=== PATIENT | female | born 1970 | race African-American/Black ===

== ENCOUNTER 2020-09-05 17:46 | Emergency (ER) | payer OTHER ==
[~2020-09-05] VITALS: Ht 162.6 cm; Wt 145.1 kg
[~2020-09-05 17:46] MED LIST: AMLODIPINE BESY10 MG ORAL; CARVEDILOL25 MG ORAL; FUROSEMIDE20 M1 ORAL; HYDROCHLOROTHIA25 MG ORAL; LIPITOR10 MG ORAL; LOSARTAN POTASS50 MG ORAL; MILK THISTLE140 M1 PO; MULTI-VITAMIN1 EAC2 PO; SPIRONOLACTONE25 MG ORAL; SPIRONOLACTONE50 MG ORAL; [UNRECOGNIZED DRUG - OTHER]; [UNRECOGNIZED DRUG - OTHER] PO; [UNRECOGNIZED DRUG - OTHER] PO
--- NOTE | 2020-09-05 18:21 | Emergency Room Report ---
History of Present Illness General Chief Complaint: Abdominal Pain Source: Patient Present Illness HPI Disclaimer: Please note that this report is being documented using DGSE technology. This can lead to erroneous entry secondary to incorrect interpretation by the dictating instrument. HPI: Is a 50-year-old female presenting for evaluation abdominal pain. History of uterine fibroids status post embolization and myomectomy. She states an ultrasound this summer showed a large fibroid tumor and is scheduled for MRI soon to determine further treatment. She states worsening pain caused her to vomit over the past few days. Unable to hold down her medications. Also felt a sharp midsternal chest pain does not radiate with a sort of mild shortness of breath. This is now resolved. States she feels persistently nauseated. No exacerbating or relieving symptoms. PMH: Uterine fibroids, CAD PSH: Myomectomy, uterine embolization. Allergies: [] Social Hx: [] Allergies: Coded Allergies: No Known Allergies (Unverified , 07/21/13) COVID-19 Screening Contact w/high risk pt: No Experienced COVID-19 symptoms?: Yes COVID-19 Testing performed PROVIDER ENROLLMENT SPECIALIST: No Nursing Documentation-PMH Hx Cardiac Problems: No Hx Hypertension: Yes Hx COPD: Yes Hx Cancer: No Hx Gastrointestinal Problems: No - fibroid tumors Hx Dialysis: No Hx Neurological Problems: No Physical Exam Vital Signs Date Time Temp Pulse Resp B/P (MAP) Pulse Ox O2 Delivery O2 Flow Rate FiO2 09/05/20 18:02 99.1 102 18 161/96 (117) 94 Room Air General: Awake and alert, no acute distress HEENT: NC/AT. EOMI. Cardiovascular: RRR. S1 and S2 normal. No murmur appreciated Resp: Normal work of breathing. No cough, wheezing or crackles appreciated Abdomen: Morbidly obese abdomen. Abdomen is soft, nondistended. Suprapubic tenderness without guarding. Negative rebound. Some tenderness in the epigastrium. Unable to assess for Null secondary to body habitus. Skin: Intact. No abrasions, laceration or rash over the exposed skin MSK: Normal tone and bulk. Moving all extremities. No obvious deformity. Neuro: Awake and alert. Mentating appropriately. Medical Decision Making Diagnostic Impression: Primary Impression: Abdominal pain Additional Impressions: Diverticulosis Fibroid, uterine Hiatal hernia ER Course 50-year-old female presenting for evaluation of abdominal pain and vomiting. Differential includes is not limited to gastritis, gastroenteritis, mesenteric ischemia, pancreatitis, cholecystitis, nephrolithiasis, pancreatitis, bowel obstruction, diverticulitis, fibroid uterus, UTI, pyelonephritis, intra- abdominal mass among others. Labs have returned within normal limits. Patient noted improvement in nausea after receiving Zofran however complained of persistent low abdominal tenderness. CT was obtained to evaluate for appendicitis or other significant pathology but returned largely within normal limits. There were findings of fibroid uterus consistent with patient's history as well as diverticulosis without diverticulitis, hiatal hernia and small gallstones but no evidence of impaction or obstruction. She is feeling well on reevaluation stable for outpatient follow-up. Scheduled to follow-up with [employer] TECHNICIAN for MRI of the uterus and further treatment of fibroids. Will discharge with Pepcid and Zofran. Copies of labs and CT including discharge paperwork. Instructed to return with new or worsening symptoms. She understands and agrees with this treatment plan. Laboratory Tests Test 09/05/20 18:25 White Blood Count 7.5 K/UL (4.8-10.8) Red Blood Count 4.85 M/UL (4.20-5.40) Hemoglobin 14.0 G/DL (12.0-16.0) Hematocrit 41.6 % (37.0-47.0) Mean Corpuscular Volume 86 FL (80-99) Mean Corpuscular Hemoglobin 28.9 PG (27.0-31.0) Mean Corpuscular Hemoglobin Concent 33.7 G/DL (32.0-36.0) Red Cell Distribution Width 15.5 % (11.6-14.8) H Platelet Count 237 K/UL (150-450) Mean Platelet Volume 7.5 FL (6.5-10.1) Neutrophils (%) (Auto) 79.4 % (45.0-75.0) H Lymphocytes (%) (Auto) 15.3 % (20.0-45.0) L Monocytes (%) (Auto) 4.8 % (1.0-10.0) Eosinophils (%) (Auto) 0.3 % (0.0-3.0) Basophils (%) (Auto) 0.2 % (0.0-2.0) Urine Color Pale yellow Urine Appearance Clear Urine pH 8 (4.5-8.0) Urine Specific [place] 1.005 (1.005-1.035) Urine Protein Negative (NEGATIVE) Urine Glucose (UA) Negative (NEGATIVE) Urine Ketones Negative (NEGATIVE) Urine Blood 2+ (NEGATIVE) H Urine Nitrite Negative (NEGATIVE) Urine Bilirubin Negative (NEGATIVE) Urine Urobilinogen Normal MG/DL (0.0-1.0) Urine Leukocyte Esterase Negative (NEGATIVE) Urine RBC 15-20 /HPF (0 - 2) H Urine WBC 0-2 /HPF (0 - 2) Urine Squamous Epithelial Cells Few /LPF (NONE/OCC) Urine Bacteria Few /HPF (NONE) Sodium Level 139 MMOL/L (136-145) Potassium Level 3.9 MMOL/L (3.5-5.1) Chloride Level 103 MMOL/L (98-107) Carbon Dioxide Level 29 MMOL/L (21-32) Anion Gap 7 mmol/L (5-15) Blood Urea Nitrogen 8 mg/dL (7-18) Creatinine 0.9 MG/DL (0.55-1.30) Estimated Glomerular Filtration Rate > 60 mL/min (>60) Glucose Level 103 MG/DL (74-106) Calcium Level 8.9 MG/DL (8.5-10.1) Total Bilirubin 0.6 MG/DL (0.2-1.0) Aspartate Amino Transferase (AST) 22 U/L (15-37) Alanine Aminotransferase (ALT) 30 U/L (12-78) Alkaline Phosphatase 78 U/L (46-116) Troponin I 0.000 ng/mL (0.000-0.056) Total Protein 7.9 G/DL (6.4-8.2) Albumin 3.3 G/DL (3.4-5.0) L Globulin 4.6 g/dL Albumin/Globulin Ratio 0.7 (1.0-2.7) L Lipase 105 U/L (73-393) CT/MRI/US Diagnostic Results CT/MRI/US Diagnostic Results : Impression IMPRESSION: 1. Cardiomegaly. 2. Hiatal hernia. 3. Minimal cholelithiasis. 4. No hydronephrosis. 5. Appendix is unremarkable. 6. No bowel obstruction. 7. Diverticulosiswithout diverticulitis. 8. Fibroid uterus. Radiologist: Maximino Sosa MD Electronically Signed: 09/05/20 20:59 Study ready at 20:53 and initial results transmitted at 2 Last Vital Signs Date Time Temp Pulse Resp B/P (MAP) Pulse Ox O2 Delivery O2 Flow Rate FiO2 09/05/20 18:02 99.1 102 18 161/96 (117) 94 Room Air Disposition: HOME, SELF-CARE Condition: Stable Scripts Ondansetron Odt* (ZOFRAN ODT*) 4 Mg Tab.rapdis 4 MG BC EVERY 6 HOURS PRN for Nausea & Vomiting, #20 TAB 0 Refills Prov: Lars Cruz MD 09/05/20 Famotidine* (Pepcid 20mg tablet*) 20 Mg Tablet 20 MG ORAL DAILY for Gerd, #30 TAB 0 Refills Prov: Lars Cruz MD 09/05/20 Lars Cruz MD Sep 05, 2020 18:21
--- NOTE | 2020-09-05 18:35 | NUR ---
ED Nurse Note: Patient was BIBA from home due to lowr abd pain, N/V. Patient presented calm, AAO x4, VSS at this time. Stated has uterin fybroids, and today they got so painful. IV line was started on left AC 20ga blood and urine sent to lab
[2020-09-05 18:40] VITALS: BP 161/96
[2020-09-05 18:44] LABS: BASOPHILS % (AUTO) 0.2 % (0.0-2.0); EOSINOPHILS % (AUTO) 0.3 % (0.0-3.0); HEMATOCRIT 41.6 % (37.0-47.0); LYMPHOCYTES % (AUTO) 15.3 % (20.0-45.0); MEAN CORPUSCULAR VOLUME 86 FL (80-99); MONOCYTES % (AUTO) 4.8 % (1.0-10.0); NEUTROPHILS % (AUTO) 79.4 % (45.0-75.0); PLATELET COUNT 237 K/UL (150-450); RED BLOOD COUNT 4.85 M/UL (4.20-5.40); RED CELL DISTRIBUTION WIDTH 15.5 % (11.6-14.8); WHITE BLOOD COUNT 7.5 K/UL (4.8-10.8)
[2020-09-05] MEDS ORDERED: Morphine Sulfate 4mg/ml Inj (IV USE ONLY) IVP ONE (18:45)
[2020-09-05 18:46] LABS: APPEARANCE,URINE CLEAR; BILIRUBIN, URINE NEGATIVE (NEGATIVE); COLOR,URINE PALE YELLOW; GLUCOSE, URINE (UA) NEGATIVE (NEGATIVE); KETONES,URINE NEGATIVE (NEGATIVE); LEUKOCYTE ESTERASE ,URINE NEGATIVE (NEGATIVE); NITRITE,URINE NEGATIVE (NEGATIVE); PH,URINE 8 (4.5-8.0); PROTEIN,URINE NEGATIVE (NEGATIVE); UROBILINOGEN,URINE NORMAL MG/DL (0.0-1.0)
[2020-09-05 19:12] LABS: ANION GAP 7 mmol/L (5-15); BLOOD UREA NITROGEN 8 mg/dL (7-18); CALCIUM 8.9 MG/DL (8.5-10.1); CARBON DIOXIDE 29 MMOL/L (21-32); CHLORIDE 103 MMOL/L (98-107); CREATININE 0.9 MG/DL (0.55-1.30); POTASSIUM 3.9 MMOL/L (3.5-5.1); SODIUM 139 MMOL/L (136-145)
[2020-09-05 19:17] LABS: ALANINE AMINOTRANSFERASE 30 U/L (12-78); ALBUMIN 3.3 G/DL (3.4-5.0); ALBUMIN/GLOBULIN RATIO 0.7 (1.0-2.7); ALKALINE PHOSPHATASE 78 U/L (46-116); ASPARTATE AMINO TRANSFERASE 22 U/L (15-37); BILIRUBIN,TOTAL 0.6 MG/DL (0.2-1.0)
--- NOTE | 2020-09-05 19:18 | NUR ---
HAND-OFF: Report given to RADHA Segovia.
--- NOTE | 2020-09-05 19:19 | NUR ---
ED Nurse Note: Report received from VERNELL GARCIA. Patient awake on bed. VSS as documented
[2020-09-05] MEDS ORDERED: Omnipaque-300 100ml vial INJ PRN (20:00)
--- NOTE | 2020-09-05 20:30 | NUR ---
ED Nurse Note: CT done
--- NOTE | 2020-09-05 21:00 | Diagnostic Imaging Report ---
EXAM: CT Abdomen and Pelvis With Intravenous Contrast CLINICAL HISTORY: ABD PAIN TECHNIQUE: Axial computed tomography images of the abdomen and pelvis with intravenous contrast. CTDI is 31.1 mGy and DLP is 1700.8 mGy-cm. One or more of the following dose reduction techniques were used: automated exposure control, adjustment of the mA and/or kV according to patient size, use of iterative reconstruction technique. COMPARISON: No relevant prior studies available. FINDINGS: Lung bases: Minimal presumed subsegmental atelectasis at the lung bases including the lingula and the medial aspect of the right middle lobe. Heart: Cardiomegaly. Mediastinum: Moderate hiatal hernia. ABDOMEN: Liver: The liver and the spleen enhance uniformly. Gallbladder and bile ducts: Tiny gallstones within the gallbladder which is otherwise unremarkable. No ductal dilation. Pancreas: The head, body, tail of the pancreas are unremarkable per No ductal dilation. Spleen: See above. Adrenals: 0.8 cm probable left adrenal adenoma which requires no follow-up. 0.5 cm probable right adrenal adenoma which requires no follow-up. Kidneys and ureters: No renal calculus or hydronephrosis. Subcentimeter simple renal cysts are noted which requires no follow. Stomach and bowel: Very minimal ingested material in the stomach. Moderate quantity of stool throughout the colon without bowel obstruction. Diverticulosis without diverticulitis. PELVIS: Appendix: The appendix is seen on coronal image 23 and is unremarkable. Bladder: The bladder is underdistended. Reproductive: Bulbous fibroid uterus with calcified fibroids. ABDOMEN and PELVIS: Intraperitoneal space: Unremarkable. No free air. No significant fluid collection. Bones/joints: Mild degenerative disc disease of the visualized spine. Moderate osteoarthritic changes about the sacroiliac joints. No spondylolysis or spinal listhesis. The sacrum and coccyx are unremarkable. Gentle levoscoliosis of the visualized spine. No acute fracture. No dislocation. Soft tissues: Ischiorectal fat is clean. Vasculature: Atherosclerotic disease of the abdominal aorta without change in caliber. Flow is demonstrated within the celiac, SMA, the renal arteries, and LUTHER. Portal vein is unremarkable. No abdominal aortic aneurysm. Lymph nodes: No retroperitoneal lymphadenopathy. No pelvic or inguinal lymphadenopathy. IMPRESSION: 1. Cardiomegaly. 2. Hiatal hernia. 3. Minimal cholelithiasis. 4. No hydronephrosis. 5. Appendix is unremarkable. 6. No bowel obstruction. 7. Diverticulosis without diverticulitis. 8. Fibroid uterus.
[2020-09-05] MEDS ORDERED: ONDANSETRON ODT4 MG BC (21:05)
[2020-09-05] MEDS ORDERED: FAMOTIDINE20 MG ORAL (21:05)
[2020-09-05 21:15] VITALS: BP 141/85
--- NOTE | 2020-09-05 21:15 | NUR ---
ER DISCHARGE NOTE: Patient is cleared to be discharged per ERMD, pt is aox4, on room air, with stable vital signs. pt was given dc and prescription instructions, pt was able to verbalize understanding, pt id band and iv site removed without complications. pt is able to ambulate with steady gait. pt took all belongings.
--- NOTE | 2020-09-06 09:59 | Diagnostic Imaging Report ---
Indication: Chest pain Technique: XRAY Chest 1v Comparison: 05/28/2015 Findings: Heart is enlarged but stable in size with the prior exam. Equivocal mild central pulmonary vascular congestion. No evidence of alveolar edema. No definite focal consolidation. No pleural effusion or pneumothorax. No acute osseous abnormality. Impression: Stable cardiomegaly. Equivocal central pulmonary vascular congestion. Correlate for mild CHF.
== END 2020-09-05 21:15 | disposition home or self-care (01) ==
LOC: EDBD 17:46 → EMR 18:39
DX: R10.9 Unspecified abdominal pain (principal); K57.30 Diverticulosis of large intestine without perforation or abscess without bleeding; D25.9 Leiomyoma of uterus, unspecified; K44.9 Diaphragmatic hernia without obstruction or gangrene; K80.20 Calculus of gallbladder without cholecystitis without obstruction; I10 Essential (primary) hypertension; J44.9 Chronic obstructive pulmonary disease, unspecified
CPT/HCPCS: 36415; 71045; 74177; 80053; 81003; 83690; 84484; 85025; 93005; 96374; 96375; 99284; J2270; J2405; Q9965